=== PATIENT | male | born 1975 | race Two or more races ===

== ENCOUNTER 2016-12-24 02:32 | Emergency (ER) | payer OTHER ==
[2016-12-24 04:41] VITALS: BP 139/73
== END 2016-12-24 04:41 | disposition home or self-care (01) ==
LOC: ED 02:32
DX: S01.01XA Laceration without foreign body of scalp, initial encounter (principal); X58.XXXA Exposure to other specified factors, initial encounter; Y93.89 Activity, other specified; Y92.89 Other specified places as the place of occurrence of the external cause; Y99.8 Other external cause status
CPT/HCPCS: 90715; J2001